=== PATIENT | female | born 1970 | race African-American/Black ===

== ENCOUNTER 2019-01-10 05:41 | Inpatient (IN) | payer MEDICARE, MEDICAID ==
[~2019-01-10] VITALS: Ht 167.6 cm; Wt 70.8 kg
[2019-01-10] MEDS ORDERED: LORAZEPAM 2MG/ML CPJ IM ONE (14:15)
[2019-01-10] MEDS ORDERED: OLANZAPINE 10 MG/VIAL IM ONE (14:15)
[2019-01-10 16:08] LABS: BASOPHILS % 0.6 % (0.0-2.0); EOSINOPHILS % 0.5 % (0.0-5.0); HEMATOCRIT. 41.9 % (36.0-48.0); HEMOGLOBIN. 14.3 g/dL (12.0-16.0); LYMPHOCYTES % 31.3 % (20.0-50.0); MEAN CORPUSCULAR HEMOGLOBIN 32.6 pg (28.0-32.0); MEAN CORPUSCULAR VOLUME 95.6 fL (81.0-99.0); MEAN PLATELET VOLUME 10.8 fl (7.4-10.4); MONOCYTES % 5.1 % (2.0-8.0); NEUTROPHILS % 62.5 % (40.0-76.0); PLATELET 231 x1000/uL (130-400); RED BLOOD CELL COUNT 4.38 mill/uL (4.2-5.4); RED CELL DISTRIBUTION WIDTH 12.5 % (11.6-14.6)
[2019-01-10 16:09] LABS: CHLORIDE 90 mEq/L (98-107)
[2019-01-10 16:14] LABS: ETHANOL BLOOD < 10 mg/dL
[2019-01-10 16:23] LABS: HCG SCREEN POSITIVE
[2019-01-10] MEDS ORDERED: SODIUM CHLORIDE 0.9% 1,000 ML IV ONE ×2 (16:55→22:45)
[2019-01-10] MEDS ORDERED: INSULIN REGULAR (HUMULIN R) 300UNITS/3ML IV ONE (17:00)
[2019-01-10 19:36] LABS: HCG SCREEN POSITIVE
[2019-01-10] MEDS ORDERED: LORAZEPAM 2MG/ML CPJ IV ONE (23:00)
[2019-01-10 23:56] LABS: CLARITY URINE CLEAR (CLEAR); COLOR URINE YELLOW (YELLOW); KETONES URINE NEGATIVE (NEGATIVE); LEUKOCYTE ESTERASE URINE 1+ (NEGATIVE); NITRITE URINE NEGATIVE (NEGATIVE); OCCULT BLOOD URINE NEGATIVE (NEGATIVE); PH URINE 7.5 (4.5-8.0); PROTEIN URINE NEGATIVE (NEGATIVE); SPECIFIC GRAVITY URINE 1.024 (1.005-1.030); UROBILINOGEN URINE 0.2 E.U./dL (0.2-1.0)
[2019-01-11 00:07] LABS: *AMPHETAMINES SCREEN URINE NEGATIVE (NEGATIVE); *BARBITURATES SCREEN URINE NEGATIVE (NEGATIVE)
[2019-01-11 00:08] LABS: *BENZODIAZEPINES SCREEN URINE NEGATIVE (NEGATIVE); *COCAINE SCREEN URINE NEGATIVE (NEGATIVE); METHADONE URINE SCREEN NEGATIVE (NEGATIVE); OPIATES URINE SCREEN NEGATIVE (NEGATIVE); PHENCYCLIDINE URINE SCREEN NEGATIVE (NEGATIVE)
[2019-01-11 00:09] LABS: CANNABINOID URINE SCREEN NEGATIVE (NEGATIVE)
[2019-01-11] MEDS ORDERED: OLANZAPINE 10 MG/VIAL IM ONE (03:15)
[2019-01-11] MEDS ORDERED: INS NPH/REG HM 70-30 100 UNITS/ML 10ML VIAL (HUMULIN 70-30) SUBCUT ONE (05:45)
[2019-01-11] MEDS ORDERED: INSULIN REGULAR (HUMULIN R) 300UNITS/3ML SUBCUT ONE ×2 (06:30→18:45)
[2019-01-11] MEDS ORDERED: NITROFURANTOIN 100MG M/M CAPSULE PO ONE (08:00)
[2019-01-11] MEDS ORDERED: SODIUM CHLORIDE 0.9% 1,000 ML IV ONE (18:43)
[2019-01-12] MEDS ORDERED: INSULIN REGULAR (HUMULIN R) 300UNITS/3ML SUBCUT ONE ×3 (03:15→14:15)
[2019-01-12] MEDS ORDERED: OLANZAPINE 10 MG/VIAL IM STA (08:44)
[2019-01-12] MEDS ORDERED: SODIUM CHLORIDE 0.9% 1,000 ML IV ONE (09:30)
[2019-01-12] MEDS ORDERED: METFORMIN HCL 500MG TABLET PO ONE ×2 (11:15→18:15)
[2019-01-12] MEDS ORDERED: INSULIN REGULAR (HUMULIN R) UD 100 UNITS/ML SYR SUBCUT ONE (13:45)
[2019-01-12] MEDS ORDERED: OLANZAPINE 10 MG/VIAL IM ONE (15:30)
[2019-01-12] MEDS ORDERED: BLOOD SUGAR DIAGNOSTIC STRIP TEST ONE (18:15)
[2019-01-12] MEDS ORDERED: INSULIN GLARGINE UD 100 UNITS/ML SYR SUBCUT ONE (18:15)
[2019-01-12] MEDS ORDERED: ACETAMINOPHEN 325MG TABLET PO STA (22:14)
[2019-01-13] MEDS ORDERED: INSULIN REGULAR (HUMULIN R) 300UNITS/3ML SUBCUT ONE ×2 (14:30→18:15)
[2019-01-13] MEDS ORDERED: SODIUM CHLORIDE 0.9% 1,000 ML IV ONE ×2 (14:30→17:53)
[2019-01-13] MEDS ORDERED: INSULIN REGULAR (HUMULIN R) UD 100 UNITS/ML SYR SUBCUT NR (15:30)
[2019-01-13 21:34] LABS: CHLORIDE 101 mEq/L (98-107)
[2019-01-14] MEDS ORDERED: SODIUM CHLORIDE 0.9% 1,000 ML IV ONE (02:00)
[2019-01-14] MEDS ORDERED: CEFTRIAXONE 1 G PREMIX 50 ML IV ONE (02:00)
[2019-01-14] MEDS: INSULIN LISPRO 100 UNITS/ML SUBCUT NR ×2 (02:15→03:36)
[2019-01-14] MEDS ORDERED: CEFTRIAXONE 1 G PREMIX 50 ML IV NR (02:15)
[2019-01-14] MEDS ORDERED: OLANZAPINE 10 MG/VIAL IM ONE (02:30)
[2019-01-14] MEDS ORDERED: GUAIFENESIN 200MG/10ML SUGAR FREE UDC PO PRN (06:30)
[2019-01-14] MEDS ORDERED: ONDANSETRON HCL 4MG/2ML INJ IV PRN (06:30)
[2019-01-14] MEDS ORDERED: DOCUSATE SODIUM 100MG CAPSULE PO PRN (06:30)
[2019-01-14] MEDS ORDERED: DEXTROSE 50% WATER 50ML SYRINGE IV PRN (06:30)
[2019-01-14] MEDS ORDERED: LORAZEPAM 2MG/ML CPJ IV PRN (06:30)
[2019-01-14] MEDS ORDERED: HYDRALAZINE 20MG/ML VIAL IV PRN (06:30)
[2019-01-14] MEDS ORDERED: DIPHENHYDRAMINE 50MG/ML VIAL IV PRN (06:30)
[2019-01-14] MEDS ORDERED: MAGNESIUM/ALUMINUM HYDROXIDE/SIMETHICONE 30ML UDC PO PRN (06:30)
[2019-01-14] MEDS ORDERED: IPRATROPIUM/ALBUTEROL 0.5-3(2.5)MG/3ML NEB INH PRN (06:30)
[2019-01-14] MEDS ORDERED: CLONIDINE 0.1MG TABLET PO PRN (06:30)
[2019-01-14] MEDS: SODIUM CHLORIDE 0.45% 1,000 ML IV SCH (10:00)
[2019-01-14] MEDS: INSULIN LISPRO 100 UNITS/ML SUBCUT SCH ×4 (10:29→20:34)
[2019-01-14 11:13] VITALS: BP 120/58
[2019-01-14] MEDS: BLOOD SUGAR DIAGNOSTIC STRIP TEST SCH ×3 (12:33→20:32)
[2019-01-14 17:00] VITALS: BP 110/65
[2019-01-14] MEDS: SODIUM CHLORIDE 0.9% INJ 3ML FLUSH IVF SCH ×2 (17:49→20:33)
[2019-01-14 20:00] VITALS: BP 116/60
[2019-01-14] MEDS: INSULIN GLARGINE UD 100 UNITS/ML SYR SUBCUT SCH (20:35)
[2019-01-15] VITALS (7 sets, daily range): BP systolic 104–147; BP diastolic 49–99
[2019-01-15] MEDS: SODIUM CHLORIDE 0.45% 1,000 ML IV SCH ×2 (02:30→18:02)
[2019-01-15] MEDS: SODIUM CHLORIDE 0.9% INJ 3ML FLUSH IVF SCH ×3 (06:00→20:03)
[2019-01-15] MEDS: BLOOD SUGAR DIAGNOSTIC STRIP TEST SCH ×4 (06:03→20:03)
[2019-01-15] MEDS: INSULIN LISPRO 100 UNITS/ML SUBCUT SCH ×4 (06:11→20:42)
[2019-01-15 06:24] LABS: BASOPHILS % 0.8 % (0.0-2.0); EOSINOPHILS % 1.7 % (0.0-5.0); HEMATOCRIT. 37.6 % (36.0-48.0); HEMOGLOBIN. 12.4 g/dL (12.0-16.0); LYMPHOCYTES % 38.8 % (20.0-50.0); MEAN CORPUSCULAR HEMOGLOBIN 32.1 pg (28.0-32.0); MEAN CORPUSCULAR VOLUME 97.4 fL (81.0-99.0); MEAN PLATELET VOLUME 10.8 fl (7.4-10.4); MONOCYTES % 7.3 % (2.0-8.0); NEUTROPHILS % 51.4 % (40.0-76.0); PLATELET 242 x1000/uL (130-400); RED BLOOD CELL COUNT 3.86 mill/uL (4.2-5.4); RED CELL DISTRIBUTION WIDTH 12.6 % (11.6-14.6)
[2019-01-15 06:35] LABS: CHLORIDE 99 mEq/L (98-107)
[2019-01-15] MEDS: INSULIN GLARGINE UD 100 UNITS/ML SYR SUBCUT SCH (20:42)
[2019-01-15 23:46] LABS: HCG SCREEN NEGATIVE
[2019-01-16 04:00] VITALS: BP 120/74
[2019-01-16] MEDS: SODIUM CHLORIDE 0.9% INJ 3ML FLUSH IVF SCH ×4 (05:38→21:34)
[2019-01-16] MEDS: BLOOD SUGAR DIAGNOSTIC STRIP TEST SCH ×4 (06:09→21:34)
[2019-01-16] MEDS: INSULIN LISPRO 100 UNITS/ML SUBCUT SCH ×4 (06:30→21:35)
[2019-01-16 07:37] VITALS: BP 121/80
[2019-01-16] MEDS: SODIUM CHLORIDE 0.45% 1,000 ML IV SCH (11:40)
[2019-01-16 12:00] VITALS: BP 122/79
[2019-01-16 16:00] VITALS: BP 119/70
[2019-01-16 20:00] VITALS: BP 107/56
[2019-01-16] MEDS: INSULIN GLARGINE UD 100 UNITS/ML SYR SUBCUT SCH (21:37)
[2019-01-17] VITALS: BP 121/53
[2019-01-17 04:00] VITALS: BP_SYST 119; BP_SYST 154; BP_DIAS 47; BP_DIAS 56
[2019-01-17] MEDS: SODIUM CHLORIDE 0.9% INJ 3ML FLUSH IVF SCH ×3 (04:03→22:00)
[2019-01-17] MEDS: SODIUM CHLORIDE 0.45% 1,000 ML IV SCH ×2 (04:03→21:20)
[2019-01-17] MEDS: INSULIN LISPRO 100 UNITS/ML SUBCUT SCH ×3 (07:40→21:20)
[2019-01-17 08:00] VITALS: BP 104/50
[2019-01-17] MEDS: ACETAMINOPHEN 325MG TABLET PO PRN (08:34)
[2019-01-17] MEDS: LORAZEPAM 2MG/ML CPJ IM PRN (09:21)
[2019-01-17] MEDS: INSULIN GLARGINE UD 100 UNITS/ML SYR SUBCUT SCH ×2 (09:32→21:14)
[2019-01-17] MEDS ORDERED: LORAZEPAM 2MG/ML CPJ IV PRN (10:30)
[2019-01-17] MEDS: BLOOD SUGAR DIAGNOSTIC STRIP TEST SCH ×2 (12:35→20:54)
[2019-01-17] MEDS ORDERED: INSULIN LISPRO 100 UNITS/ML SUBCUT SCH (13:00)
[2019-01-17] MEDS ORDERED: INS NPH/REG HM 70-30 100 UNITS/ML 10ML VIAL (HUMULIN 70-30) SUBCUT ONE (13:00)
[2019-01-17] MEDS: NITROFURANTOIN 100MG M/M CAPSULE PO SCH ×2 (16:05→20:37)
[2019-01-17 20:00] VITALS: BP 90/50
[2019-01-18] VITALS: BP 106/67
[2019-01-18 04:00] VITALS: BP 99/51
[2019-01-18] MEDS: SODIUM CHLORIDE 0.9% INJ 3ML FLUSH IVF SCH ×3 (05:59→22:00)
[2019-01-18] MEDS: INSULIN LISPRO 100 UNITS/ML SUBCUT SCH ×4 (07:40→21:00)
[2019-01-18] MEDS: LORAZEPAM 2MG/ML CPJ IM PRN ×3 (07:45→23:04)
[2019-01-18] MEDS: BLOOD SUGAR DIAGNOSTIC STRIP TEST SCH ×4 (07:51→21:00)
[2019-01-18] MEDS ORDERED: INSULIN LISPRO 100 UNITS/ML SUBCUT NR ×2 (12:00→15:15)
[2019-01-18] MEDS: SODIUM CHLORIDE 0.45% 1,000 ML IV SCH (12:24)
[2019-01-18] MEDS: INSULIN GLARGINE UD 100 UNITS/ML SYR SUBCUT SCH ×2 (12:28→22:06)
[2019-01-18] MEDS: NITROFURANTOIN 100MG M/M CAPSULE PO SCH ×2 (12:29→22:06)
[2019-01-18 20:00] VITALS: BP 108/51
[2019-01-18] MEDS ORDERED: INSULIN GLARGINE UD 100 UNITS/ML SYR SUBCUT SCH (22:00)
[2019-01-19] VITALS: BP 121/66
[2019-01-19 04:00] VITALS: BP 142/68
[2019-01-19] MEDS: SODIUM CHLORIDE 0.45% 1,000 ML IV SCH ×2 (05:49→23:20)
[2019-01-19] MEDS: SODIUM CHLORIDE 0.9% INJ 3ML FLUSH IVF SCH ×3 (06:00→20:37)
[2019-01-19 06:16] VITALS: BP 142/68
[2019-01-19] MEDS: INSULIN LISPRO 100 UNITS/ML SUBCUT SCH ×4 (07:11→22:04)
[2019-01-19] MEDS: LORAZEPAM 2MG/ML CPJ IM PRN ×4 (07:53→21:23)
[2019-01-19 08:00] VITALS: BP 108/51
[2019-01-19] MEDS: NITROFURANTOIN 100MG M/M CAPSULE PO SCH ×2 (08:37→20:36)
[2019-01-19] MEDS: INSULIN GLARGINE UD 100 UNITS/ML SYR SUBCUT SCH ×2 (09:06→22:04)
[2019-01-19 12:00] VITALS: BP 121/70
[2019-01-19] MEDS: BLOOD SUGAR DIAGNOSTIC STRIP TEST SCH ×4 (12:10→21:50)
[2019-01-19 16:31] VITALS: BP 119/68
[2019-01-20] MEDS: ACETAMINOPHEN 325MG TABLET PO PRN (04:06)
[2019-01-20] MEDS: SODIUM CHLORIDE 0.9% INJ 3ML FLUSH IVF SCH ×3 (05:59→22:00)
[2019-01-20] MEDS: INSULIN LISPRO 100 UNITS/ML SUBCUT SCH ×5 (06:04→21:00)
[2019-01-20] MEDS: BLOOD SUGAR DIAGNOSTIC STRIP TEST SCH ×4 (06:05→21:00)
[2019-01-20] MEDS: NITROFURANTOIN 100MG M/M CAPSULE PO SCH ×2 (09:00→22:46)
[2019-01-20] MEDS: INSULIN GLARGINE UD 100 UNITS/ML SYR SUBCUT SCH ×3 (10:00→22:56)
[2019-01-20] MEDS: SODIUM CHLORIDE 0.45% 1,000 ML IV SCH (15:06)
[2019-01-20 20:00] VITALS: BP 90/48
[2019-01-21] MEDS: SODIUM CHLORIDE 0.9% INJ 3ML FLUSH IVF SCH ×3 (06:00→22:31)
[2019-01-21] MEDS: BLOOD SUGAR DIAGNOSTIC STRIP TEST SCH ×4 (07:10→21:48)
[2019-01-21] MEDS: INSULIN LISPRO 100 UNITS/ML SUBCUT SCH ×4 (07:40→21:50)
[2019-01-21 08:00] VITALS: BP 103/55
[2019-01-21] MEDS: NITROFURANTOIN 100MG M/M CAPSULE PO SCH ×3 (09:00→22:34)
[2019-01-21] MEDS: INSULIN GLARGINE UD 100 UNITS/ML SYR SUBCUT SCH ×2 (10:52→21:51)
[2019-01-21 12:00] VITALS: BP 101/68
[2019-01-21 16:00] VITALS: BP 98/54
[2019-01-21 20:00] VITALS: BP 102/45
[2019-01-22] MEDS: SODIUM CHLORIDE 0.9% INJ 3ML FLUSH IVF SCH ×2 (06:00→12:48)
[2019-01-22] MEDS: BLOOD SUGAR DIAGNOSTIC STRIP TEST SCH ×4 (07:10→21:00)
[2019-01-22] MEDS: NITROFURANTOIN 100MG M/M CAPSULE PO SCH ×2 (09:48→21:10)
[2019-01-22] MEDS: INSULIN GLARGINE UD 100 UNITS/ML SYR SUBCUT SCH ×2 (09:49→21:27)
[2019-01-22] MEDS: INSULIN LISPRO 100 UNITS/ML SUBCUT SCH ×4 (09:49→21:27)
[2019-01-22 12:02] VITALS: BP 112/58
[2019-01-22 16:00] VITALS: BP 119/66
[2019-01-22 20:00] VITALS: BP 125/88
[2019-01-23] MEDS: BLOOD SUGAR DIAGNOSTIC STRIP TEST SCH ×2 (06:22→12:40)
[2019-01-23] MEDS: INSULIN LISPRO 100 UNITS/ML SUBCUT SCH ×2 (06:22→12:40)
[2019-01-23 08:00] VITALS: BP 106/76
[2019-01-23] MEDS: NITROFURANTOIN 100MG M/M CAPSULE PO SCH (09:00)
[2019-01-23] MEDS: INSULIN GLARGINE UD 100 UNITS/ML SYR SUBCUT SCH (10:23)
[2019-01-23 12:00] VITALS: BP 110/67
[2019-01-23 16:00] VITALS: BP 126/70
[2019-01-23 16:34] LABS: CLARITY URINE CLEAR (CLEAR); COLOR URINE DARK YELLOW (YELLOW); KETONES URINE NEGATIVE (NEGATIVE); LEUKOCYTE ESTERASE URINE NEGATIVE (NEGATIVE); NITRITE URINE NEGATIVE (NEGATIVE); OCCULT BLOOD URINE NEGATIVE (NEGATIVE); PH URINE 7.5 (4.5-8.0); PROTEIN URINE NEGATIVE (NEGATIVE); SPECIFIC GRAVITY URINE 1.014 (1.005-1.030)
[2019-01-23 17:20] VITALS: BP 106/76
== END 2019-01-23 18:30 | DRG 638 ==
LOC: ER 05:41 → EDBD 01-12 15:29 → 8WST 01-12 15:29 → EDBEDREQ 01-12 15:31 → SUPCPDRO 01-12 17:54 → ENRESERV 01-13 03:26 → CANRESERV 01-13 03:26 → EDBEDREQ 01-14 01:54 → EDBEDREQTM 01-14 01:54 → EDBEDREQDT 01-14 01:54 → EDBEDREQ 01-14 02:06 → ENRESERV 01-14 07:15 → CANRESERV 01-14 09:39
PROVIDERS: ADMIT Internal Medicine; ATTEND Internal Medicine
DX: E11.65 Type 2 diabetes mellitus with hyperglycemia (principal); N39.0 Urinary tract infection, site not specified; E46 Unspecified protein-calorie malnutrition; R45.851 Suicidal ideations; E44.1 Mild protein-calorie malnutrition; F31.9 Bipolar disorder, unspecified; F20.9 Schizophrenia, unspecified; F17.210 Nicotine dependence, cigarettes, uncomplicated; Z59.0 Homelessness; Z68.25 Body mass index [BMI] 25.0-25.9, adult
CPT/HCPCS: 36415; 76856; 80048; 80076; 80305; 80307; 80320; 80329; 81025; 82010; 82962; 83036; 84450; 84460; 84702; 84703; 86850; 86900; 87077; 87186; 96361; 96372; 96374; 96375; 99285; J0696; J1200; J1815; J2060; J3490; J7030; G0480